=== PATIENT | female | born 2005 | race Caucasian/White ===

== ENCOUNTER 2024-03-24 21:50 | Emergency (ER) | payer SELFPAY ==
[~2024-03-24] VITALS: Ht 160 cm; Wt 54.4 kg
[~2024-03-24 21:50] MED LIST: ALBU.083IS IH; ALBU90I INH; CEPH500 PO; FLUT44OIA IH; MONT4 PO; ONDA4ODT MM
[2024-03-24] MEDS ORDERED: Ketorolac Tromethamine 15mg Vial IM ONE (22:35)
[2024-03-24] MEDS ORDERED: Acetaminophen 500 MG Tab PO ONE (22:35)
[2024-03-24 22:54] VITALS: BP 120/69
[2024-03-24] MEDS ORDERED: ACET500 PO (23:53)
[2024-03-24] MEDS ORDERED: IBUP600 PO (23:53)
== END 2024-03-25 00:02 | disposition home or self-care (01) ==
LOC: ER 21:50
DX: J02.9 Acute pharyngitis, unspecified (principal); G47.33 Obstructive sleep apnea (adult) (pediatric); J45.909 Unspecified asthma, uncomplicated
CPT/HCPCS: 96372; 99282-25; A9270; J1885

== ENCOUNTER 2024-06-13 11:23 | Observation (INO) | payer OTHER ==
[~2024-06-13] VITALS: Ht 160 cm; Wt 68.0 kg
[~2024-06-13 11:23] MED LIST changes: +ACET500 PO; +IBUP600 PO
[2024-06-13] MEDS ORDERED: Midazolam HCl 1MG / ML 2ML Vial IV ONE (12:05)
[2024-06-13 12:15] LABS: Source, Urine Clean Catch
[2024-06-13 12:18] LABS: Bilirubin, Urine Neg (Neg); Blood, Urine Neg (Neg); Glucose Qualitative, Urine Neg (Neg); Ketones, Urine Neg (Neg); Nitrite, Urine Neg (Neg); Protein, Urine Neg (Neg); Urobilinogen, Urine NORM (Normal)
[2024-06-13 12:22] LABS: Appearance, Urine Clear (Clear); Color, Urine Yellow (P-Yellow); Leukocyte Esterase, Urine 1+ (Neg)
[2024-06-13 12:40] LABS: BASOPHILS ABSOLUTE AUTO 0.12 K/mm3 (0.00-0.23); BASOPHILS PERCENT AUTO 2 % (0-2); EOSINOPHILS ABSOLUTE AUTO 0.27 K/mm3 (0.00-0.68); EOSINOPHILS PERCENT AUTO 4 % (0-6); Hematocrit 35.2 % (33.0-51.0); Hemoglobin 11.9 g/dL (11.5-16.0); IMMATURE GRAN ABSOLUTE AUTO 0.01 K/mm3 (0.00-0.10); IMMATURE GRAN PERCENT AUTO 0 % (0-1); LYMPHOCYTES PERCENT AUTO 20 % (21-46); MONOCYTES ABSOLUTE AUTO 0.55 K/mm3 (0.16-1.47); MONOCYTES PERCENT AUTO 8 % (4-13); Mean Corpuscular HGB 32.1 pg (26.0-34.0); Mean Corpuscular HGB Conc 33.8 g/dL (31.5-36.5); Mean Corpuscular Volume 95 fL (80-100); Mean Platelet Volume 9.2 fL (9.1-12.4); NEUTROPHILS PERCENT AUTO 66 % (41-73); Platelet Count 385 K/mm3 (150-400); RDW Standard Deviation 41.6 fL (35.1-46.3); Red Blood Cell Count 3.71 M/mm3 (3.80-5.20); White Blood Cell Count 6.85 K/mm3 (4.00-11.30)
[2024-06-13 12:56] LABS: Bacteria Few /hpf; Red Blood Cells, Urine 0-2 /hpf (0-2); Squamous Epithelial Cells Mod /hpf (Few); White Blood Cells, Urine 0-2 /hpf (0-5)
[2024-06-13 13:09] LABS: Albumin, Blood 3.5 g/dL (3.4-5.0); Bilirubin, Total 0.2 mg/dL (0.1-1.0); Bun/Creatinine Ratio 11.1 (12.0-20.0); Creatinine, Blood 0.81 mg/dL (0.40-1.00); Globulin, Blood 3.6 g/dL (2.2-4.0); Potassium, Blood 3.8 mmol/L (3.5-5.5); Total Protein, Blood 7.1 g/dL (6.4-8.2)
[2024-06-13 13:18] LABS: U Amphetamine Screen Not Detected; U Barbituate Screen Not Detected; U Benzodiazapine Screen Not Detected; U Buprenorphine Screen Not Detected; U Cannabinoids Screen DETECTED; U Cocaine Screen Not Detected; U Methadone Screen Not Detected; U Methamphetamine Screen Not Detected; U Opiates Screen Not Detected; U Oxycodone Screen Not Detected; U Phencyclidine Screen Not Detected
[2024-06-13 13:21] LABS: C-REACTIVE PROTEIN, EXT RANGE <0.290 mg/dL (0.000-0.300)
[2024-06-13] MEDS ORDERED: IVIG (Pharmacy Consult) IV ONE (13:45)
[2024-06-13 14:12] LABS: Adenovirus Not Detected (NOT DETECT); Coronavirus 229E Not Detected (NOT DETECT); Coronavirus HKU1 Not Detected (NOT DETECT); Coronavirus NL63 Not Detected (NOT DETECT); Coronavirus OC43 Not Detected (NOT DETECT)
[2024-06-13 14:13] LABS: Bordetella pertussis Not Detected (NOT DETECT); Chlamydophila pneumoniae Not Detected (NOT DETECT); Human Metapneumovirus Not Detected (NOT DETECT); Human Rhinovirus/Enterovirus Not Detected (NOT DETECT); Influenza A/2009-H1 Not Detected (NOT DETECT); Influenza A/H1 Not Detected (NOT DETECT); Influenza A/H3 Not Detected (NOT DETECT); Influenza B Not Detected (NOT DETECT); Mycoplasma pneumoniae Not Detected (NOT DETECT); Parainfluenza Virus 1 Not Detected (NOT DETECT); Parainfluenza Virus 2 Not Detected (NOT DETECT); Parainfluenza Virus 3 Not Detected (NOT DETECT); Parainfluenza Virus 4 Not Detected (NOT DETECT); Respiratory Syncytial Virus Not Detected (NOT DETECT); SARS-Cov-2 (COVID-19), BioFire Not Detected (NOT DETECT)
[2024-06-13] MEDS ORDERED: IMMUN GLOB G(IGG)/PRO/IGA 0-50 100 ML IV SCH (14:15)
[2024-06-13 14:55] LABS: International Normalized Ratio 1.03
[2024-06-13 16:23] LABS: RBC Count, CSF 2 /mm3 (0-0); WBC Count, CSF 0 /mm3 (0-5)
[2024-06-13 16:24] LABS: Appearance, CSF Clear (Clear); Color, CSF No Color (No Color)
[2024-06-13 16:33] LABS: Appearance, CSF Clear (Clear); Color, CSF No Color (No Color); RBC Count, CSF 6 /mm3 (0-0); WBC Count, CSF 1 /mm3 (0-5)
[2024-06-13 17:32] LABS: Cryptococcus Neoformans/Gattii Not Detected (NOT DETECT); Enterovirus Not Detected (NOT DETECT); Escherichia Coli K1 Not Detected (NOT DETECT); Haemophilus Influenza Not Detected (NOT DETECT); Herpes Simplex Virus 1 Not Detected (NOT DETECT); Herpes Simplex Virus 2 Not Detected (NOT DETECT); Human Herpesvirus 6 Not Detected (NOT DETECT); Human Parechovirus Not Detected (NOT DETECT); Listeria Monocytogenes Not Detected (NOT DETECT); Neisseria Meningitidis Not Detected (NOT DETECT); Streptococcus Agalactiae Not Detected (NOT DETECT); Streptococcus Pneumoniae Not Detected (NOT DETECT); Varicella Zoster Virus Not Detected (NOT DETECT)
[2024-06-13] MEDS ORDERED: FLU VACC TS2024-25(6MOS UP)/PF 45 MCG/0.5 ML SYRINGE IM ONE (17:35)
[2024-06-13 18:45] VITALS: BP 124/69
--- NOTE | 2024-06-13 18:52 | NUR ---
PATIENT ARRIVES TO UNIT VIA BED AND WAS TRANSFERRED VIA SLIDE SHEET. FAMILY IS AT BEDSIDE. VITAL SIGNS TAKEN AND STABLE. PATIENT IS ALERT AND ORIENTED X4 AND COOPERATIVE WITH HER CARE. TELE ATTACHED AND SHOWING NSR WITH RATE IN 60'S. SATTING AT 100% ON ROOM AIR WITH NO NOTED DISTRESS. WILL REPORT TO ONCOMING FACULTY CRIMINAL JUSTICE RN.
[2024-06-13 20:00] VITALS: BP 120/70
[2024-06-13] MEDS ORDERED: Acetaminophen 500 MG Tab PO PRN (21:20)
[2024-06-14 00:04] VITALS: BP 116/63
[2024-06-14 03:50] VITALS: BP 120/80
[2024-06-14 03:57] LABS: BASOPHILS ABSOLUTE AUTO 0.06 K/mm3 (0.00-0.23); BASOPHILS PERCENT AUTO 1 % (0-2); EOSINOPHILS ABSOLUTE AUTO 0.28 K/mm3 (0.00-0.68); EOSINOPHILS PERCENT AUTO 5 % (0-6); Hematocrit 32.6 % (33.0-51.0); Hemoglobin 10.9 g/dL (11.5-16.0); IMMATURE GRAN ABSOLUTE AUTO 0.01 K/mm3 (0.00-0.10); IMMATURE GRAN PERCENT AUTO 0 % (0-1); LYMPHOCYTES ABSOLUTE AUTO 2.04 K/mm3 (0.84-5.20); LYMPHOCYTES PERCENT AUTO 37 % (21-46); MONOCYTES ABSOLUTE AUTO 0.75 K/mm3 (0.16-1.47); MONOCYTES PERCENT AUTO 14 % (4-13); Mean Corpuscular HGB 31.6 pg (26.0-34.0); Mean Corpuscular HGB Conc 33.4 g/dL (31.5-36.5); Mean Corpuscular Volume 95 fL (80-100); Mean Platelet Volume 9.2 fL (9.1-12.4); NEUTROPHILS ABSOLUTE AUTO 2.37 K/mm3 (1.96-9.15); NEUTROPHILS PERCENT AUTO 43 % (41-73); Platelet Count 371 K/mm3 (150-400); RDW Coefficient Variation 11.9 % (11.7-14.2); RDW Standard Deviation 41.1 fL (35.1-46.3); Red Blood Cell Count 3.45 M/mm3 (3.80-5.20); White Blood Cell Count 5.51 K/mm3 (4.00-11.30)
[2024-06-14 04:26] LABS: Albumin/Globulin Ratio 0.7 (0.8-1.8); Bilirubin, Total 0.3 mg/dL (0.1-1.0); Bun/Creatinine Ratio 12.3 (12.0-20.0); Calcium, Blood 8.4 mg/dL (8.5-10.1); Creatinine, Blood 0.73 mg/dL (0.40-1.00); Globulin, Blood 4.1 g/dL (2.2-4.0); Potassium, Blood 3.5 mmol/L (3.5-5.5); Total Protein, Blood 7.1 g/dL (6.4-8.2)
--- NOTE | 2024-06-14 05:49 | NUR ---
NOC SHIFT SUMMARY PT ORIENTED X4, VSS OVERNIGHT. ON CONTINOUS TELEMETRY, SR. ABLE TO MAKE NEEDS KNOWN. PLEASANT AND COOPERATIVE. N/T TO BILATERAL LE, WEAK AND UNSTEADY GAIT WITH AMBULATION. FALL RISK PREVENTION IN PLACE. 1+ PEDAL EDEMA BILATERALLY. PT TOLERATED IVIG INFUSION AT START OF SHIFT, 3/3 BOTTLES GIVEN. LP SITE CDI, BANDAID IN PLACE. HEADACHE X1, PRNS GIVEN WITH RELIEF. SLEPT WELL OVERNIGHT
[2024-06-14] MEDS ORDERED: Cyanocobalamin 1000 MCG/ML 1ML Vial IM SCH (07:00)
[2024-06-14 08:01] VITALS: BP 118/70
[2024-06-14] MEDS ORDERED: Enoxaparin 40 MG/0.4 ML SYR SC SCH (09:00)
[2024-06-14 13:26] VITALS: BP 119/81
--- NOTE | 2024-06-14 15:14 | NUR ---
CALL PLACED TO MD REGARDING THE MRI RESULTS THAT WERE BACK AND POSSIBLE PLAN THE PATIENT WAS ASKING WHEN SHE WOULD BE GOING HOME. MESSAGE ALSO RELAYED TO MD REGARDING THE PATIENTS WISH OF ONLY HAVING THE HOSPITALIST ROUND SHE WAS OVERWHELMED WITH ALL THE RESIDENTS THAT CAME BY THIS MORNING. MD ALSO GAVE ORDERS FOR NO IV THE PATIENT'S PREVIOUS LEAKED AND WAS TAKEN OUT.
[2024-06-14 15:51] VITALS: BP 136/81
--- NOTE | 2024-06-14 17:03 | NUR ---
END OF SHIFT SUMMARY: PATIENT IS ALERT AND ORIENTED X4 AND ACTIVE IN HER CARE. IS ON TELE SHOWING SINUS WITH RATE IN 80'S. SATTING >92% ON ROOM AIR WITHOUT ANY DIFFICULTIES. AN MRI WAS DONE TODAY AND [facility]. VITAMIN B12 WAS REPLACED PER EMAR AND PATIENT WAS ANXIOUS FOR THE SHOT BUT TOLERATED IT WELL. FAMILY WAS AT BEDSIDE THROUGHOUT THE SHIFT. MD CAME BY AND GAVE ORDERS FOR PATIENT TO BE DISCHARGED TONIGHT. PATIENT AND FAMILY AWARE AND EDUCATED ABOUT THE FOLLOWING STEPS TO FOLLOW UP ON THE B12 SHOTS AT HOME AND MOM NANCY SON HAS KNOWLEDGE ABOUT HOW TO GIVE THAT IM INJECTION. WILL NOTIFY TO ONCOMING PATIENT SERVICES REP RN.
[2024-06-14] MEDS ORDERED: B-12 COMPL1000 MCG/2 IM (17:44)
[2024-06-14] MEDS ORDERED: FOLI1 PO (17:45)
--- NOTE | 2024-06-14 18:21 | NUR ---
DISCHARGE SUMMARY: PATIENT LEFT VIA WHEELCHIAR WITH MOM FIGURE WITH HER. WENT OVER DISCHARGE INFORMATION AND HOW SHE WILL NEED TO FOLLOW UP WITH PRIMARY CARE PROVIDER WITHIN 1-2 WEEKS AND TO CONTINUE THE VITAMIN B-12 SHOTS UNTIL HER SYMPTOMS RESOLVE AND HER PRIMARY WILL MAKE THE DECESION TO SWITCH TO ORAL. PATIENT UNDERSTOOD EDUCATION AND TO STAY AWAY FROM ANY INHALIANTS. ASKED FOR A DOCTORS NOTE FOR WORK AND A CALL WAS PLACED TO MD BUT SHE STATED THAT HER DISCHARGE PAPERWORK WILL SUFFICE. TELE PATCHES TAKEN OFF AND PATIENT TOOK ALL OF HER BELONGINGS.
[2024-06-14 23:09] LABS: EBV AB TO EARLY (D) AG IGG <5.0 U/mL (0.0-10.9); EBV AB TO VIRAL CAPSID AG IGG 88.4 U/mL (0.0-21.9); EBV AB TO VIRAL CAPSID AG IGM <10.0 U/mL (0.0-43.9)
== END 2024-06-14 18:30 | disposition home or self-care (01) ==
LOC: ER 11:23 → PCU 11:24
PROVIDERS: Physician Assistant; Student in an Organized Health Care Education/Training Program; ADMIT Internal Medicine
DX: E53.8 Deficiency of other specified B group vitamins (principal); G32.0 Subacute combined degeneration of spinal cord in diseases classified elsewhere; J45.909 Unspecified asthma, uncomplicated; G62.9 Polyneuropathy, unspecified; G47.33 Obstructive sleep apnea (adult) (pediatric)
CPT/HCPCS: 0202U; 36415; 62270; 62328; 70553; 72156; 72158; 80053; 80320; 81001; 81025; 82607; 82746; 82945; 83690; 84157; 85025; 85610; 85651; 85730; 86140; 86663; 86664; 86665; 87070; 87086; 87205; 87483; 89051; 94762; 96365-59; 96366-59; 96372; 99285-25; A9270; A9579; G0378; J1459; J2250; J3420

== ENCOUNTER → 2025-04-04 | Outpatient (CLI) | payer OTHER ==
[~2025-04-04] MED LIST changes: +B-12 COMPL1000 MCG/2 IM; +FOLI1 PO
[2025-04-04 16:32] LABS: Candida Group, PCR NOT DETECTED (NOT DETECT); Candida glabrata-krusei, PCR NOT DETECTED (NOT DETECT)
[2025-04-04 16:36] LABS: Bacterial Vaginosis PCR Positive (NEGATIVE)
[2025-04-04 17:05] LABS: Chlamydia Trachomatis Vaginal NOT DETECTED (NOT DETECT); Neisseria Gonorrhoea Vaginal NOT DETECTED (NOT DETECT)
== END ==
LOC: LAB SHORT 11:15 → LAB 11:15
PROVIDERS: Registered Nurse Community Health
DX: N89.8 Other specified noninflammatory disorders of vagina (principal)
CPT/HCPCS: 81515; 87491; 87591

== ENCOUNTER 2025-06-28 22:32 | Emergency (ER) | payer OTHER ==
[~2025-06-28] VITALS: Ht 162.6 cm; Wt 65.8 kg
[2025-06-28 23:00] VITALS: BP 104/49
[2025-06-28 23:24] LABS: BASOPHILS ABSOLUTE AUTO 0.02 K/mm3 (0.00-0.23); BASOPHILS PERCENT AUTO 0 % (0-2); EOSINOPHILS ABSOLUTE AUTO 0.07 K/mm3 (0.00-0.68); EOSINOPHILS PERCENT AUTO 1 % (0-6); Hematocrit 34.1 % (33.0-51.0); Hemoglobin 11.6 g/dL (11.5-16.0); IMMATURE GRAN ABSOLUTE AUTO 0.02 K/mm3 (0.00-0.10); IMMATURE GRAN PERCENT AUTO 0 % (0-1); LYMPHOCYTES ABSOLUTE AUTO 1.34 K/mm3 (0.84-5.20); LYMPHOCYTES PERCENT AUTO 22 % (21-46); MONOCYTES ABSOLUTE AUTO 0.66 K/mm3 (0.16-1.47); MONOCYTES PERCENT AUTO 11 % (4-13); Mean Corpuscular HGB Conc 34.0 g/dL (31.5-36.5); Mean Corpuscular Volume 96 fL (80-100); NEUTROPHILS ABSOLUTE AUTO 3.95 K/mm3 (1.96-9.15); NEUTROPHILS PERCENT AUTO 65 % (41-73); NRBC ABSOLUTE 0.00 K/mm3 (0.00-0.02); NRBC Auto 0.0 /100 WBC (0.0-0.2); Platelet Count 284 K/mm3 (150-400); RDW Coefficient Variation 17.6 % (11.7-14.2); RDW Standard Deviation 60.4 fL (35.1-46.3)
[2025-06-29 00:12] LABS: Anion Gap 9.0 mmol/L (3-11); Blood Urea Nitrogen 8.0 mg/dL (8-24); CO2, Blood 23.0 mmol/L (21-32); Calcium, Blood 9.4 mg/dL (8.5-10.1); Chloride, Blood 107.0 mmol/L (98-108); Creatinine, Blood 0.67 mg/dL (0.40-1.00); Glucose, Blood 83.0 mg/dL (70-99); Magnesium, Blood 1.7 mg/dL (1.6-2.4); Potassium, Blood 3.6 mmol/L (3.5-5.5); Sodium, Blood 135.0 mmol/L (136-145)
== END 2025-06-29 00:46 | disposition home or self-care (01) ==
LOC: ER 22:32
PROVIDERS: Emergency Medicine
DX: T41.0X1A Poisoning by inhaled anesthetics, accidental (unintentional), initial encounter (principal); R20.2 Paresthesia of skin; J45.909 Unspecified asthma, uncomplicated; G47.33 Obstructive sleep apnea (adult) (pediatric); Z79.899 Other long term (current) drug therapy; Z88.0 Allergy status to penicillin
CPT/HCPCS: 80048; 82607; 83735; 85025; 99284